=== PATIENT | female | born 1985 | race Caucasian/White ===

== ENCOUNTER 2017-03-23 10:23 | Emergency (ER) | payer BC, MEDICAID ==
[~2017-03-23] VITALS: Ht 162.6 cm; Wt 72.1 kg
[2017-03-23 10:25] VITALS: BP 116/72
== END 2017-03-23 12:02 | disposition home or self-care (01) ==
LOC: ED 11:56
DX: O20.0 Threatened abortion (principal); Z3A.01 Less than 8 weeks gestation of pregnancy
CPT/HCPCS: 36415; 76801; 84702; 86901; 99285

== ENCOUNTER 2018-10-14 20:04 | Inpatient (IN) | payer MEDICAID ==
[~2018-10-14] VITALS: Ht 162.6 cm; Wt 82.8 kg
--- NOTE | 2018-10-14 21:06 | NUR ---
Assumedc are of patient. C/O epigastric pain and nausea since 1300 today. Eating and drinking makes it worse. Hx gastritis. Will continue to monitor.
[2018-10-14] MEDS ORDERED: MAALOX/HYOSCYAMINE/LIDOCAINE 45 ML BTL ONE (21:16)
[2018-10-14] MEDS ORDERED: ONDANSETRON ODT 4 MG ONE (21:16)
[2018-10-14 21:30] LABS: CULTURE INDICATED? YES; MICROSCOPIC INDICATED
[2018-10-14] MEDS ORDERED: MAALOX/HYOSCYAMINE/LIDOCAINE 45 ML BTL PO ONE (21:30)
[2018-10-14] MEDS ORDERED: ONDANSETRON ODT 4 MG PO ONE (21:30)
--- NOTE | 2018-10-14 21:36 | NUR ---
Patient reports improved symptoms after medication admin.
[2018-10-14 21:40] LABS: BASOPHILS # (AUTO) 0.02 x10^3/uL (0-0.1); BASOPHILS % (AUTO) 0 % (0-1); EOSINOPHILS # (AUTO) 0.03 x10^3/uL (0-0.4); EOSINOPHILS % (AUTO) 1 % (1-7); LYMPHOCYTES % (AUTO) 23 % (22-44); MD NO; MEAN CORPUSCULAR HEMOGLOBIN 31.3 pg (27.0-34.8); MEAN CORPUSCULAR HGB CONC 34.1 g/dL (32.4-35.8); MEAN CORPUSCULAR VOLUME 91.9 fL (80-100); MEAN PLATELET VOLUME 8.1 fL (7.4-10.4); MONOCYTES # (AUTO) 0.47 x10^3/uL (0.2-0.8); MONOCYTES % (AUTO) 7 % (2-9); NEUTROPHILS # (AUTO) 4.87 x10^3/uL (1.8-6.8); NEUTROPHILS % (AUTO) 70 % (42-75); PLATELET COUNT 240 x10^3/uL (130-400); RED BLOOD COUNT 4.37 x10^6/uL (3.82-5.3); RED CELL DISTRIBUTION WIDTH 13.4 % (9.6-15.2)
[2018-10-14 21:49] LABS: ALANINE AMINOTRANSFERASE 362 U/L (12-78); ALBUMIN 3.5 g/dL (3.4-5.0); ANION GAP 8 mmol/L (5-15); CALCIUM 8.2 mg/dL (8.5-10.1); CHLORIDE 110 mmol/L (98-107); CREATININE 0.71 mg/dL (0.55-1.02)
[2018-10-14 21:54] LABS: ALKALINE PHOSPHATASE 117 U/L (45-117); BILIRUBIN,TOTAL 0.6 mg/dL (0.2-1.0); TOTAL PROTEIN 6.6 g/dL (6.4-8.2)
--- NOTE | 2018-10-14 22:43 | NUR ---
PT. TO US VIA MIKE AT THIS TIME. THIS RN ASSUMED CARE OF PT. AT 2116 AFTER BS REPORT WAS RECEIVED FROM QASIM JUAREZ.
--- NOTE | 2018-10-14 22:53 | NUR ---
CHART UP FOR RECHECK BY ERP AT THIS TIME.
--- NOTE | 2018-10-14 23:23 | NUR ---
SPOKE WITH QASIM LOMELI AT TRAN[facility] AT [facility]. DENIED TRANSFER AT THIS TIME BY [facility].
--- NOTE | 2018-10-14 23:38 | NUR ---
REPORT TO QASIM CALLEJAS. FLOOR READY FOR PT. TRANSPORT.
[2018-10-15] MEDS ORDERED: ACETAMINOPHEN 325 MG TABLET PO PRN
[2018-10-15] MEDS ORDERED: ONDANSETRON 2MG/ML, 2ML IVPush PRN
[2018-10-15] MEDS ORDERED: BISACODYL 10 MG SUPP PR PRN
[2018-10-15] MEDS ORDERED: KETOROLAC 30 MG/1 ML IM PRN (00:30)
[2018-10-15] MEDS: KETOROLAC 30 MG/1 ML IVPush PRN ×3 (00:39→17:33)
[2018-10-15 00:43] VITALS: BP 106/68
[2018-10-15] MEDS: NS + 20MEQ KCL 1,000 ML IV SCH ×3 (00:55→20:18)
[2018-10-15 01:02] VITALS: BP 102/64
[2018-10-15 05:39] LABS: BASOPHILS # (AUTO) 0.02 x10^3/uL (0-0.1); BASOPHILS % (AUTO) 0 % (0-1); EOSINOPHILS # (AUTO) 0.05 x10^3/uL (0-0.4); EOSINOPHILS % (AUTO) 1 % (1-7); LYMPHOCYTES # (AUTO) 1.18 x10^3/uL (1-3.4); LYMPHOCYTES % (AUTO) 24 % (22-44); MD NO; MEAN CORPUSCULAR HEMOGLOBIN 31.4 pg (27.0-34.8); MEAN CORPUSCULAR VOLUME 92.2 fL (80-100); MEAN PLATELET VOLUME 8.6 fL (7.4-10.4); MONOCYTES # (AUTO) 0.52 x10^3/uL (0.2-0.8); MONOCYTES % (AUTO) 11 % (2-9); NEUTROPHILS # (AUTO) 3.06 x10^3/uL (1.8-6.8); NEUTROPHILS % (AUTO) 63 % (42-75); PLATELET COUNT 222 x10^3/uL (130-400); RED BLOOD COUNT 4.32 x10^6/uL (3.82-5.3); RED CELL DISTRIBUTION WIDTH 13.4 % (9.6-15.2)
[2018-10-15 05:49] LABS: ALBUMIN 3.2 g/dL (3.4-5.0); ANION GAP 8 mmol/L (5-15); CALCIUM 7.9 mg/dL (8.5-10.1); CHLORIDE 112 mmol/L (98-107)
[2018-10-15 05:54] LABS: ALANINE AMINOTRANSFERASE 842 U/L (12-78); ALKALINE PHOSPHATASE 124 U/L (45-117); BILIRUBIN,TOTAL 0.9 mg/dL (0.2-1.0); CREATININE 0.75 mg/dL (0.55-1.02); TOTAL PROTEIN 6.1 g/dL (6.4-8.2)
[2018-10-15 07:03] VITALS: BP 92/58
[2018-10-15] MEDS: NICOTINE 14MG/24 HR PATCH.TD24 TD SCH ×2 (10:58)
[2018-10-15 11:08] LABS: HCT (SEDRATE) 39.8 % (34.6-47.8)
[2018-10-15 11:16] LABS: INTERNATIONAL NORMALIZED RATIO 1.06 (0.93-1.1); PROTHROMBIN TIME 11.1 Seconds (9.6-11.5)
[2018-10-15 11:19] LABS: ACETAMINOPHEN < 2 mcg/mL (10-30); C-REACTIVE PROTEIN, QUANT 0.66 mg/dL (0.02-0.49); SALICYLATE LEVEL < 1.7 mg/dL (2.8-20.0)
[2018-10-15 13:02] VITALS: BP 106/68
[2018-10-15 13:16] LABS: ALBUMIN 3.4 g/dL (3.4-5.0)
[2018-10-15 13:20] LABS: BILIRUBIN, DIRECT 0.2 mg/dL (0.1-0.2); BILIRUBIN,INDIRECT 0.5 mg/dL (0.0-2.0); BILIRUBIN,TOTAL 0.7 mg/dL (0.2-1.0); TOTAL PROTEIN 6.6 g/dL (6.4-8.2)
[2018-10-15] MEDS ORDERED: SINCALIDE (KINEVAC) 5 MCG ONE (15:54)
[2018-10-15 16:52] LABS: AMPHETAMINE SCREEN, URINE Negative (Negative); BARBITURATE SCREEN, URINE Negative (Negative); BENZODIAZEPINE SCREEN, URINE Negative (Negative); CANNABINOID SCREEN, URINE Negative (Negative); COCAINE SCREEN, URINE Negative (Negative); METHADONE SCREEN, URINE Negative (Negative); OPIATE SCREEN, URINE Negative (Negative)
[2018-10-15 18:44] VITALS: BP 106/71
[2018-10-15] MEDS: CEFOTETAN PMX 1GM/50ML 50 ML IV SCH (22:24)
[2018-10-15 22:44] VITALS: BP 106/70
[2018-10-16 00:39] VITALS: BP 104/69
[2018-10-16 04:55] LABS: BASOPHILS # (AUTO) 0.03 x10^3/uL (0-0.1); BASOPHILS % (AUTO) 1 % (0-1); EOSINOPHILS # (AUTO) 0.12 x10^3/uL (0-0.4); EOSINOPHILS % (AUTO) 3 % (1-7); LYMPHOCYTES # (AUTO) 1.73 x10^3/uL (1-3.4); LYMPHOCYTES % (AUTO) 37 % (22-44); MD NO; MEAN CORPUSCULAR HEMOGLOBIN 31.5 pg (27.0-34.8); MEAN CORPUSCULAR HGB CONC 34.2 g/dL (32.4-35.8); MEAN CORPUSCULAR VOLUME 92.1 fL (80-100); MEAN PLATELET VOLUME 8.3 fL (7.4-10.4); MONOCYTES # (AUTO) 0.38 x10^3/uL (0.2-0.8); MONOCYTES % (AUTO) 8 % (2-9); NEUTROPHILS # (AUTO) 2.38 x10^3/uL (1.8-6.8); NEUTROPHILS % (AUTO) 51 % (42-75); PLATELET COUNT 169 x10^3/uL (130-400); RED BLOOD COUNT 3.97 x10^6/uL (3.82-5.3); RED CELL DISTRIBUTION WIDTH 13.4 % (9.6-15.2)
[2018-10-16] MEDS: NS + 20MEQ KCL 1,000 ML IV SCH ×2 (04:57→19:16)
[2018-10-16 05:04] LABS: ANION GAP 5 mmol/L (5-15); CALCIUM 7.9 mg/dL (8.5-10.1); CHLORIDE 117 mmol/L (98-107)
[2018-10-16 05:07] LABS: ALANINE AMINOTRANSFERASE 491 U/L (12-78); ALKALINE PHOSPHATASE 115 U/L (45-117); BILIRUBIN,TOTAL 0.4 mg/dL (0.2-1.0); CREATININE 0.69 mg/dL (0.55-1.02); TOTAL PROTEIN 5.8 g/dL (6.4-8.2)
[2018-10-16 07:33] VITALS: BP 116/77
[2018-10-16] MEDS ORDERED: SUCCINYLCHOLINE 20 MG/ML, 10ML ONE (10:38)
[2018-10-16] MEDS ORDERED: ROCURONIUM 10MG/ML,5ML ONE (10:38)
[2018-10-16] MEDS ORDERED: PROPOFOL 10 MG/ML, 20ML ONE (10:38)
[2018-10-16] MEDS ORDERED: DEXAMETHASONE 4 MG/ML, 1ML ONE (10:38)
[2018-10-16] MEDS ORDERED: ONDANSETRON 2MG/ML, 2ML ONE (10:38)
[2018-10-16] MEDS ORDERED: CEFAZOLIN 1,000 MG ONE (10:38)
[2018-10-16] MEDS: CEFOTETAN PMX 1GM/50ML 50 ML IV SCH ×2 (11:43→22:42)
[2018-10-16] MEDS ORDERED: FENTANYL PF 250 MCG/5ML ONE (14:02)
[2018-10-16] MEDS ORDERED: MIDAZOLAM 1 MG/ML, 2ML ONE (14:02)
[2018-10-16] MEDS ORDERED: BUPIVACAINE/PF-EPI 0.5% 1:200K ONE (14:03)
[2018-10-16] MEDS ORDERED: METOCLOPRAMIDE 5 MG/ML, 2ML IV PRN (15:00)
[2018-10-16] MEDS ORDERED: ALBUTEROL SULFATE 2.5 MG/3 ML NPPB PRN (15:00)
[2018-10-16] MEDS ORDERED: ONDANSETRON 2MG/ML, 2ML IVPush PRN (15:00)
[2018-10-16] MEDS ORDERED: LABETALOL 5MG/ML, 20ML IV PRN (15:00)
[2018-10-16] MEDS ORDERED: KETOROLAC 30 MG/1 ML IV PRN (15:00)
[2018-10-16] MEDS ORDERED: MEPERIDINE/PF 25MG/0.5ML IVPush PRN (15:00)
[2018-10-16] MEDS ORDERED: OXYcodone 5 MG/5 ML ORAL.SOL UDC PO PRN (15:00)
[2018-10-16] MEDS ORDERED: hydrALAzine 20 MG/ML, 1ML IV PRN (15:00)
[2018-10-16] MEDS ORDERED: PROMETHAZINE 25 MG/ML, 1ML IV PRN (15:00)
[2018-10-16] MEDS ORDERED: KETOROLAC 30 MG/1 ML ONE (15:45)
[2018-10-16] MEDS ORDERED: FENTANYL PF 100 MCG/2ML ONE (15:45)
[2018-10-16] MEDS ORDERED: OXYcodone 5 MG/5 ML ORAL.SOL UDC ONE (15:45)
[2018-10-16] MEDS: FENTANYL PF 100 MCG/2ML IV PRN ×2 (15:48→16:08)
[2018-10-16] MEDS ORDERED: MEPERIDINE/PF 25MG/ML,1ML ONE (15:49)
[2018-10-16] MEDS ORDERED: PROMETHAZINE 25 MG/ML, 1ML ONE (15:49)
[2018-10-16] MEDS ORDERED: HYDROmorphone 2 MG/ML, 1ML ONE (16:03)
[2018-10-16] MEDS: HYDROmorphone 1 MG/ML, 1ML INJ IV PRN ×3 (16:07→16:33)
[2018-10-16] MEDS: morphine SULFATE 10 MG/ML, 1ML IVPush PRN ×2 (17:56→20:56)
[2018-10-16 18:01] VITALS: BP 138/85
[2018-10-16] MEDS: OXYcodone/APAP 5/325MG TABLET PO PRN (19:33)
[2018-10-16 20:04] VITALS: BP 115/59
[2018-10-16] MEDS: NICOTINE 14MG/24 HR PATCH.TD24 TD SCH (23:21)
[2018-10-17] MEDS: morphine SULFATE 10 MG/ML, 1ML IVPush PRN ×2 (00:23→05:35)
[2018-10-17 00:30] VITALS: BP 104/68
[2018-10-17] MEDS: OXYcodone/APAP 5/325MG TABLET PO PRN (03:16)
[2018-10-17] MEDS: NS + 20MEQ KCL 1,000 ML IV SCH (06:16)
[2018-10-17 07:31] VITALS: BP 94/60
[2018-10-17] MEDS ORDERED: OXYC5TAB3 PO ×2 (07:52→17:06)
[2018-10-17] MEDS ORDERED: NICO-486 TD (07:52)
[2018-10-17] MEDS ORDERED: ONDA4TAB7 PO (07:52)
[2018-10-17] MEDS ORDERED: DOCU-131 PO (07:52)
[2018-10-17] MEDS ORDERED: OXYcodone IR 5MG TABLET PO PRN (08:00)
[2018-10-17] MEDS: OXYcodone IR 5MG TABLET PO PRN ×4 (09:18→17:56)
[2018-10-17 10:50] LABS: ALANINE AMINOTRANSFERASE 335 U/L (12-78); ALBUMIN 3.4 g/dL (3.4-5.0); ANION GAP 8 mmol/L (5-15); CALCIUM 8.5 mg/dL (8.5-10.1); CHLORIDE 111 mmol/L (98-107); CREATININE 0.69 mg/dL (0.55-1.02)
[2018-10-17 10:52] LABS: ALKALINE PHOSPHATASE 113 U/L (45-117); BILIRUBIN,TOTAL 0.4 mg/dL (0.2-1.0); TOTAL PROTEIN 6.6 g/dL (6.4-8.2)
[2018-10-17 16:23] VITALS: BP 98/56
== END 2018-10-17 18:00 | disposition home or self-care (01) | DRG 419 ==
LOC: ED 23:28 → EDIP 23:30 → 3NE 10-15 00:16 → 4EST 10-15 23:45
PROVIDERS: ADMIT Internal Medicine; ATTEND Internal Medicine
PROC: 0FT44ZZ Resection of Gallbladder, Percutaneous Endoscopic Approach (ICD-10-PCS; principal; 2018-10-16 14:30)
DX: K80.01 Calculus of gallbladder with acute cholecystitis with obstruction (principal); F17.210 Nicotine dependence, cigarettes, uncomplicated; R16.1 Splenomegaly, not elsewhere classified; E87.6 Hypokalemia; R00.1 Bradycardia, unspecified; Z72.89 Other problems related to lifestyle
CPT/HCPCS: 36415; 74181; 76700; 78226; 80053; 80074; 80076; 80307; 80329; 81001; 83690; 84703; 85025; 85610; 85651; 86140; 87086; 88304; 93005; 99285; G0378; J0690; J1100; J1170; J1885; J2175; J2250; J2405; J2550; J2704; J3010; J3480; Q0162; A9537; C9898; G0480; J0330; J2270; J2805; J3490